=== PATIENT | female | born 1960 | race Caucasian/White ===

== ENCOUNTER 2023-08-12 08:03 | Inpatient (IN) | payer OTHER ==
[2023-08-12] MEDS ORDERED: Iopamidol 370 76% 100 ML VIAL ONE (09:54)
[2023-08-12 11:22] VITALS: BMI 34.5
[2023-08-12] MEDS ORDERED: Glucagon 1 MG/ML KIT IM PRN (11:52)
[2023-08-12] MEDS ORDERED: Dextrose 5% in Water 1,000 ML IV PRN (11:52)
[2023-08-12] MEDS ORDERED: Acetaminophen 650 MG Suppository PR PRN (11:52)
[2023-08-12] MEDS ORDERED: Dextrose 50% Abboject 50 ML SYRINGE SLOW IVP PRN (11:52)
[2023-08-12] MEDS ORDERED: Electrolyte Replacement Protocol 1 EACH FS SCH (12:00)
[2023-08-12] MEDS: Sodium Chloride 0.9% 1,000 ML IV SCH ×2 (14:00→15:44)
[2023-08-12] MEDS: methylPREDNISolone Sod Succ 40 MG VIAL IVP SCH ×2 (14:01→20:38)
[2023-08-12] MEDS: Acetaminophen/Codeine 30-300mg Tablet PO PRN (14:02)
[2023-08-12] MEDS: HumaLOG 300 UNITS/3 ML VIAL SC PRN ×2 (14:31→20:37)
[2023-08-12] MEDS: Phenol 177 ML BOT PO PRN (14:32)
[2023-08-12 14:33] LABS: Magnesium 1.3 mg/dL (1.6-2.6)
[2023-08-12 14:39] LABS: Troponin I Less than 0.010 ng/mL (< 0.028)
[2023-08-12] MEDS: Ipratropium/Albuterol 3 ML NEB NEB SCH (15:17)
[2023-08-12] MEDS: Sodium Chloride 0.9% 500 ML IV SCH (15:40)
[2023-08-12] MEDS: Magnesium 2 GM/50 ML(in water) 2 GM in Premix 1 BAG IVPB SCH ×2 (15:45→22:59)
[2023-08-12 17:28] LABS: Lactic Acid 7.6 mmol/L (0.5-2.2)
[2023-08-12] MEDS: Mometasone/Formoterol 200/5 60 PUFF INH SCH (19:30)
[2023-08-12] MEDS: DULoxetine 30 MG CAP PO SCH (20:11)
[2023-08-12] MEDS: Gabapentin 300 MG CAP PO SCH (20:12)
[2023-08-12] MEDS: guaiFENesin ER 600 MG TAB PO SCH (20:13)
[2023-08-12] MEDS: Famotidine/PF 20 mg/2ml Vial SLOW IVP SCH (20:13)
[2023-08-12] MEDS: Lidocaine Viscous Sol 2% 15 ml UD Cup SSW PRN (20:14)
[2023-08-12] MEDS: Atorvastatin Calcium 20 MG TAB PO SCH (20:40)
[2023-08-12 21:29] LABS: Critical Call Chem-Lactate NUR.FVB AT 21:25 Read back result
[2023-08-12] MEDS: Ketorolac Tromethamine 30 MG (1 mL) VIAL IVP SCH (22:43)
[2023-08-12] MEDS: Melatonin 3 MG TAB PO SCH (22:57)
[2023-08-12] MEDS: Lactated Ringer's 1,000 ML IV SCH (23:04)
[2023-08-13 02:09] LABS: Lactic Acid 5.5 mmol/L (0.5-2.2)
[2023-08-13 02:10] LABS: Critical Call Chem-Lactate NUR.FVB 0142
[2023-08-13 04:27] LABS: ALT (SGPT) 13 U/L (8-55); AST (SGOT) 12 U/L (5-34); Albumin 2.8 g/dL (3.4-4.8); Alkaline Phosphatase 79 U/L (40-110); Anion Gap 16 mmol/L (10-20); BUN (Urea Nitrogen) 12 mg/dL (9.8-20.1); Bilirubin, Total 0.4 mg/dL (0.2-1.2); Calc. Creatinine Clearance 85 mL/min (70-130); Calcium 8.7 mg/dL (7.8-10.44); Carbon Dioxide 15 mmol/L (23-31); Chloride 109 mmol/L (98-107); Estimated GFR 67; Globulin 3.1 g/dL (2.4-3.5); Potassium 4.3 mmol/L (3.5-5.1); Protein, Total 5.9 g/dL (5.8-8.1); Sodium 136 mmol/L (136-145)
[2023-08-13 04:31] LABS: Hematocrit 32.8 % (34.9-44.5); Hemoglobin 10.8 g/dL (12.0-15.5); Mean Corpuscular HGB CONC 32.9 g/dL (32.0-36.0); Mean Corpuscular Hemoglobin 27.1 pg (27.0-33.0); Mean Corpuscular Volume 82.4 fl (81.6-98.3); Mean Platelet Volume 10.8 fl (7.4-10.4); Platelet Count 148 10x3/uL (150-450); RBC Distribution Width 14.3 % (11.5-14.5); Red Blood Cell (RBC) Count 3.98 10x6/uL (3.90-5.03); White Blood Cell (WBC) Count 14.9 10x3/uL (3.5-10.5)
[2023-08-13 04:32] LABS: MDiff Complete? YES
[2023-08-13 04:33] LABS: Critical Call Chemistry @CB19 0430; Glucose 401 mg/dL (80-115); Magnesium 3.4 mg/dL (1.6-2.6)
[2023-08-13 04:55] LABS: Band 38 % (5-11); Lymphocytes 2 % (21-51); Monocytes 6 % (0-10); Neutrophil 54 % (42-75)
[2023-08-13 04:58] LABS: Platelet Adequacy Comment Appears Adequate; RBC Morph Comment Within Normal Limits
[2023-08-13 04:59] LABS: Dohle Bodies SLIGHT
[2023-08-13] MEDS: Ipratropium/Albuterol 3 ML NEB NEB PRN (07:30)
[2023-08-13] MEDS: Atenolol 50 MG TAB PO SCH (09:22)
[2023-08-13] MEDS: Enoxaparin 40 MG (0.4 mL) SYRINGE SC SCH (09:23)
[2023-08-13] MEDS: Lantus 1000 UNITS/10 ML VIAL SC SCH (09:25)
[2023-08-13] MEDS: Lidocaine 4% Patch TD SCH (10:25)
[2023-08-13 12:16] LABS: Lactic Acid 3.6 mmol/L (0.5-2.2)
[2023-08-13] MEDS: cefTRIAXone\\ROCEPHIN 2 GM in Sodium Chloride 0.9% 100 ML IVPB SCH (12:51)
[2023-08-13] MEDS: Azithromycin 500 MG in Sodium Chloride 0.9% 250 ML 250 ML IVPB SCH (12:51)
[2023-08-13] MEDS: Lactated Ringer's 1,000 ML IV SCH (12:52)
[2023-08-13 18:34] LABS: Lactic Acid 2.2 mmol/L (0.5-2.2)
[2023-08-13] MEDS: Benzocaine/Menthol 1 LOZ LOZ PO PRN (21:58)
[2023-08-14] MEDS: Melatonin 3 MG TAB PO SCH (01:15)
[2023-08-14 05:45] LABS: Hematocrit 34.6 % (34.9-44.5); Mean Corpuscular HGB CONC 31.8 g/dL (32.0-36.0); Mean Corpuscular Hemoglobin 26.5 pg (27.0-33.0); Mean Corpuscular Volume 83.4 fl (81.6-98.3); Mean Platelet Volume 10.6 fl (7.4-10.4); Platelet Count 183 10x3/uL (150-450); RBC Distribution Width 14.5 % (11.5-14.5); Red Blood Cell (RBC) Count 4.15 10x6/uL (3.90-5.03); White Blood Cell (WBC) Count 22.3 10x3/uL (3.5-10.5)
[2023-08-14 05:47] LABS: Anion Gap 15 mmol/L (10-20); BUN (Urea Nitrogen) 20 mg/dL (9.8-20.1); Calc. Creatinine Clearance 81 mL/min (70-130); Calcium 9.1 mg/dL (7.8-10.44); Carbon Dioxide 19 mmol/L (23-31); Chloride 108 mmol/L (98-107); Estimated GFR 64; Glucose 203 mg/dL (80-115); MDiff Complete? YES; Potassium 5.2 mmol/L (3.5-5.1); Sodium 137 mmol/L (136-145)
[2023-08-14 06:16] LABS: Band 19 % (5-11); Lymphocytes 4 % (21-51); Monocytes 2 % (0-10); Neutrophil 75 % (42-75)
[2023-08-14 06:19] LABS: Microcytosis SLIGHT = 6-15 cells (100X) (0-5/hpf); Platelet Adequacy Comment Appears Adequate
[2023-08-14] MEDS: Ipratropium/Albuterol 3 ML NEB NEB SCH (06:45)
[2023-08-14] MEDS ORDERED: Furosemide 20 MG (2 mL) VIAL SLOW IVP SCH (07:45)
[2023-08-14] MEDS: Albumin 25% 25 GM (100 mL) BOT IVPB SCH (09:23)
[2023-08-14] MEDS: Furosemide 20 MG (2 mL) VIAL SLOW IVP SCH (09:28)
[2023-08-14] MEDS: Acetylcysteine 800 MG/4 ML VIAL INH SCH ×2 (09:50→15:05)
[2023-08-14] MEDS: Piperacillin/Tazobactam 3.375 GM in Sodium Chloride 0.9% 100 ML IVPB SCH ×3 (11:46→14:08)
[2023-08-14] MEDS: Aluminum & Magnesium Hydroxide 60 ML, Lidocaine 2% Viscous Solution 30 ML, diphenhydrAM... SSW PRN (14:08)
[2023-08-14 14:50] LABS: Anion Gap 16 mmol/L (10-20); BUN (Urea Nitrogen) 21 mg/dL (9.8-20.1); Calc. Creatinine Clearance 72 mL/min (70-130); Carbon Dioxide 19 mmol/L (23-31); Chloride 104 mmol/L (98-107); Estimated GFR 56; Glucose 384 mg/dL (80-115); Potassium 4.6 mmol/L (3.5-5.1); Sodium 134 mmol/L (136-145)
[2023-08-14] MEDS: clonazePAM 1 MG TAB PO PRN (21:31)
[2023-08-14] MEDS: Albuterol 2.5 MG (3 mL) NEB NEB PRN (23:55)
[2023-08-15 05:21] LABS: Hematocrit 33.2 % (34.9-44.5); Hemoglobin 10.7 g/dL (12.0-15.5); Mean Corpuscular HGB CONC 32.2 g/dL (32.0-36.0); Mean Corpuscular Hemoglobin 27.1 pg (27.0-33.0); Mean Corpuscular Volume 84.1 fl (81.6-98.3); Mean Platelet Volume 10.4 fl (7.4-10.4); Platelet Count 184 10x3/uL (150-450); RBC Distribution Width 14.3 % (11.5-14.5); Red Blood Cell (RBC) Count 3.95 10x6/uL (3.90-5.03); White Blood Cell (WBC) Count 19.8 10x3/uL (3.5-10.5)
[2023-08-15 05:23] LABS: Anion Gap 14 mmol/L (10-20); BUN (Urea Nitrogen) 18 mg/dL (9.8-20.1); Calc. Creatinine Clearance 91 mL/min (70-130); Calcium 9.4 mg/dL (7.8-10.44); Carbon Dioxide 23 mmol/L (23-31); Chloride 108 mmol/L (98-107); Estimated GFR 74; Glucose 172 mg/dL (80-115); Potassium 4.3 mmol/L (3.5-5.1); Sodium 141 mmol/L (136-145)
[2023-08-15 05:36] LABS: MDiff Complete? YES
[2023-08-15 05:42] LABS: Band 19 % (5-11); Lymphocytes 6 % (21-51); Metamyelocyte 1 % (0-0); Monocytes 6 % (0-10); Neutrophil 68 % (42-75)
[2023-08-15 05:44] LABS: Platelet Adequacy Comment Appears Adequate; RBC Morph Comment Within Normal Limits
[2023-08-15] MEDS: Acetaminophen 325 MG TAB PO PRN (09:05)
[2023-08-15] MEDS: Senokot S 8.6-50 MG TAB PO PRN (09:19)
[2023-08-15] MEDS: SEMAGLUTIDE SC SCH (17:31)
[2023-08-15] MEDS ORDERED: Ipratropium/Albuterol 3 ML NEB NEB PRN (18:43)
[2023-08-15] MEDS: Ipratropium/Albuterol 3 ML NEB NEB SCH (18:56)
[2023-08-15 19:25] LABS: ALV-art Gradient 187.275 mmHg (0-20); Actual Bicarbonate (HCO3a) 22.7 mEq/L (22-28); Analyzer IN Cardio CS ICU; Base Excess (BEa) -0.5 mEq/L (-2.0 to +3.0); CO2 Tension 32.5 mmHg (35.0-45.0); Calcium, Ionized (arterial) 1.17 mmol/L (1.12-1.30); Carboxyhemoglobin (COHb) 0.2 gm% (0.0-3.0); Critical Notified By: CP.MC; Hematocrit-ABG 33 % (36.0-47.0); Hemoglobin (Hb) 11.3 g/dL (12.0-16.0); O2 Tension (PaO2), arterial 57.3 mmHg (> 80.0); Potassium - ABG Lab 3.92 mmol/L (3.70-5.30); Puncture Site LRA; RapidComm Collect By CP.MC; pH, Arterial 7.462 (7.35-7.45)
[2023-08-15] MEDS: methylPREDNISolone Sod Succ 40 MG VIAL IVP SCH (20:38)
[2023-08-15] MEDS: Furosemide 40 MG (4 mL) VIAL SLOW IVP SCH (20:38)
[2023-08-15] MEDS: Ondansetron PF 4 MG/2 ML Vial IVP PRN (21:48)
[2023-08-16 04:30] LABS: #Basophils 0.04 10x3/uL (0.0-0.2); #Eosinphils 0.03 10x3/uL (0.0-0.5); #Neutrophils 12.77 10x3/uL (1.5-8.4); %Basophils 0.3 % (0.0-2.0); %Eosinophils 0.2 % (0.0-6.0); %Lymphocytes 3.8 % (18.0-47.0); %Monocytes 2.8 % (0.0-10.0); %Neutrophils 90.5 % (40.0-75.0); Hematocrit 34.1 % (34.9-44.5); Hemoglobin 11.1 g/dL (12.0-15.5); Mean Corpuscular HGB CONC 32.6 g/dL (32.0-36.0); Mean Corpuscular Hemoglobin 26.4 pg (27.0-33.0); Platelet Count 120 10x3/uL (150-450); RBC Distribution Width 14.5 % (11.5-14.5); Red Blood Cell (RBC) Count 4.21 10x6/uL (3.90-5.03); White Blood Cell (WBC) Count 14.1 10x3/uL (3.5-10.5)
[2023-08-16 04:34] LABS: Mean Platelet Volume 11.4 fl (7.4-10.4)
[2023-08-16] MEDS: Mometasone/Formoterol 200/5 60 PUFF INH SCH (07:08)
[2023-08-16] MEDS: predniSONE 20 MG TAB PO SCH (08:44)
[2023-08-16] MEDS: Furosemide 20 MG (2 mL) VIAL SLOW IVP SCH ×2 (08:45→11:21)
[2023-08-16 14:17] LABS: Actual Bicarbonate (HCO3a) 31.3 mEq/L (22-28); Analyzer IN Cardio CS ER; Base Excess (BEa) 6.8 mEq/L (-2.0 to +3.0); Calcium, Ionized (arterial) 1.11 mmol/L (1.12-1.30); Carboxyhemoglobin (COHb) 0.4 gm% (0.0-3.0); Hematocrit-ABG 36 % (36.0-47.0); Hemoglobin (Hb) 12.3 g/dL (12.0-16.0); O2 Tension (PaO2), arterial 77.1 mmHg (> 80.0); Potassium - ABG Lab 3.47 mmol/L (3.70-5.30); Puncture Site RRA
[2023-08-16 19:16] LABS: CRP,High Sensitivity (Inhouse) 29.05 mg/dL (< or = 0.5)
[2023-08-17] MEDS: Furosemide 40 MG (4 mL) VIAL SLOW IVP SCH (06:05)
[2023-08-17] MEDS: Polyethylene Glycol 3350 17 GM Packet PO PRN (08:52)
[2023-08-17] MEDS ORDERED: Furosemide 40 MG (4 mL) VIAL SLOW IVP SCH (09:00)
[2023-08-17 09:02] LABS: #Basophils 0.05 10x3/uL (0.0-0.2); #Eosinphils 0.09 10x3/uL (0.0-0.5); #Monocytes 0.66 10x3/uL (0.0-1.1); #Neutrophils 11.82 10x3/uL (1.5-8.4); %Basophils 0.4 % (0.0-2.0); %Eosinophils 0.6 % (0.0-6.0); %Lymphocytes 7.8 % (18.0-47.0); %Monocytes 4.6 % (0.0-10.0); Hematocrit 36.7 % (34.9-44.5); Hemoglobin 12.2 g/dL (12.0-15.5); Mean Corpuscular HGB CONC 33.2 g/dL (32.0-36.0); Mean Corpuscular Hemoglobin 26.9 pg (27.0-33.0); Mean Corpuscular Volume 80.8 fl (81.6-98.3); Mean Platelet Volume 9.9 fl (7.4-10.4); Platelet Count 236 10x3/uL (150-450); Red Blood Cell (RBC) Count 4.54 10x6/uL (3.90-5.03); White Blood Cell (WBC) Count 14.2 10x3/uL (3.5-10.5)
[2023-08-17 11:12] LABS: Anion Gap 13 mmol/L (10-20); BUN (Urea Nitrogen) 19 mg/dL (9.8-20.1); Calc. Creatinine Clearance 97 mL/min (70-130); Carbon Dioxide 33 mmol/L (23-31); Chloride 96 mmol/L (98-107); Potassium 3.4 mmol/L (3.5-5.1); Sodium 139 mmol/L (136-145)
[2023-08-17 11:13] LABS: Calcium 9.2 mg/dL (7.6-10.4); Estimated GFR 79; Glucose 200 mg/dL (80-115)
[2023-08-17] MEDS: Potassium Chloride 20 MEQ TAB PO SCH (13:14)
[2023-08-17 14:15] VITALS: BMI 34.5
[2023-08-17] MEDS: Polyethylene Glycol 3350 17 GM Packet PO SCH (15:16)
[2023-08-17] MEDS: Lactulose 20 GM (30 mL) UDCUP PO SCH (15:16)
[2023-08-17] MEDS: Pantoprazole 40 MG VIAL IVP SCH ×2 (15:17→22:54)
[2023-08-17] MEDS: Ipratropium/Albuterol 3 ML NEB NEB SCH (17:33)
[2023-08-17] MEDS: Lantus 1000 UNITS/10 ML VIAL SC SCH (21:00)
[2023-08-17] MEDS: Ondansetron ODT 4 MG TAB PO PRN (22:54)
[2023-08-18 05:58] LABS: Magnesium 2.1 mg/dL (1.6-2.6); Phosphorus 3.3 mg/dL (2.3-4.7); Potassium 3.7 mmol/L (3.5-5.1)
[2023-08-18] MEDS: Polyethylene Glycol 3350 17 GM Packet PO SCH (09:27)
[2023-08-18] MEDS: Amoxicillin/Potassium Clav 875 MG TAB PO SCH (09:27)
[2023-08-19] MEDS: Calcium Carbonate 500 MG ChewTAB PO PRN (02:48)
[2023-08-19 05:14] LABS: #Basophils 0.02 10x3/uL (0.0-0.2); #Eosinphils 0.15 10x3/uL (0.0-0.5); #Monocytes 0.47 10x3/uL (0.0-1.1); %Basophils 0.3 % (0.0-2.0); %Lymphocytes 18.1 % (18.0-47.0); %Monocytes 6.2 % (0.0-10.0); %Neutrophils 69.8 % (40.0-75.0); Hematocrit 33.1 % (34.9-44.5); Hemoglobin 10.9 g/dL (12.0-15.5); Mean Corpuscular HGB CONC 32.9 g/dL (32.0-36.0); Mean Corpuscular Hemoglobin 26.8 pg (27.0-33.0); Mean Corpuscular Volume 81.5 fl (81.6-98.3); Mean Platelet Volume 10.1 fl (7.4-10.4); Platelet Count 211 10x3/uL (150-450); RBC Distribution Width 13.5 % (11.5-14.5); Red Blood Cell (RBC) Count 4.06 10x6/uL (3.90-5.03); White Blood Cell (WBC) Count 7.6 10x3/uL (3.5-10.5)
[2023-08-19 05:23] LABS: Anion Gap 14 mmol/L (10-20); BUN (Urea Nitrogen) 12 mg/dL (9.8-20.1); Calc. Creatinine Clearance 109 mL/min (70-130); Calcium 8.7 mg/dL (7.8-10.44); Carbon Dioxide 30 mmol/L (23-31); Chloride 99 mmol/L (98-107); Estimated GFR 91; Glucose 160 mg/dL (80-115); Potassium 3.5 mmol/L (3.5-5.1); Sodium 139 mmol/L (136-145)
[2023-08-19] MEDS: Potassium Chloride 20 MEQ TAB PO SCH (09:18)
[2023-08-19] MEDS ORDERED: Benzonatate 100 MG CAP PO PRN (11:29)
[2023-08-19] MEDS ORDERED: Ipratropium/Albuterol 3 ML NEB NEB PRN (11:32)
[2023-08-19] MEDS ORDERED: MAGIC MOUTH WASH W/NYSTATIN SUSP 10 ML UDCUP SSP SCH (13:00)
[2023-08-19] MEDS: Aluminum & Magnesium Hydroxide 60 ML, diphenhydrAMINE 150 MG, Lidocaine 2% Viscous Solu... SSP SCH (13:45)
[2023-08-19] MEDS: Lactulose 20 GM (30 mL) UDCUP PO SCH (13:45)
[2023-08-19] MEDS: Fluconazole 100 MG TAB PO SCH (15:05)
[2023-08-20 04:16] LABS: #Basophils 0.01 10x3/uL (0.0-0.2); #Monocytes 0.43 10x3/uL (0.0-1.1); #Neutrophils 4.83 10x3/uL (1.5-8.4); %Basophils 0.1 % (0.0-2.0); %Eosinophils 1.5 % (0.0-6.0); %Lymphocytes 18.2 % (18.0-47.0); %Monocytes 6.3 % (0.0-10.0); %Neutrophils 71.1 % (40.0-75.0); Hematocrit 33.6 % (34.9-44.5); Mean Corpuscular HGB CONC 32.7 g/dL (32.0-36.0); Mean Corpuscular Hemoglobin 26.9 pg (27.0-33.0); Mean Corpuscular Volume 82.2 fl (81.6-98.3); Mean Platelet Volume 10.3 fl (7.4-10.4); Platelet Count 222 10x3/uL (150-450); RBC Distribution Width 13.4 % (11.5-14.5); Red Blood Cell (RBC) Count 4.09 10x6/uL (3.90-5.03); White Blood Cell (WBC) Count 6.8 10x3/uL (3.5-10.5)
[2023-08-20 04:26] LABS: Anion Gap 14 mmol/L (10-20); BUN (Urea Nitrogen) 12 mg/dL (9.8-20.1); Calc. Creatinine Clearance 107 mL/min (70-130); Calcium 8.7 mg/dL (7.8-10.44); Carbon Dioxide 27 mmol/L (23-31); Chloride 100 mmol/L (98-107); Estimated GFR 89; Glucose 176 mg/dL (80-115); Potassium 3.9 mmol/L (3.5-5.1); Sodium 137 mmol/L (136-145)
[2023-08-20] MEDS ORDERED: Lansoprazole 3 MG/ML ORAL SUSPENSION PO SCH (09:00)
[2023-08-20] MEDS: Atenolol 25 MG TAB PO SCH (09:44)
[2023-08-20] MEDS: Furosemide 20 MG (2 mL) VIAL SLOW IVP SCH (11:41)
[2023-08-20] MEDS: Pantoprazole DR 40 MG TAB PO SCH (11:41)
[2023-08-20 13:38] VITALS: TEMP 98.1
[2023-08-20] MEDS: SODIUM CHLORIDE IVPB SCH (13:44)
[2023-08-20] MEDS: ADMIXTURE FEE IVPB SCH (13:44)
[2023-08-20] MEDS: FUROSEMIDE IVPB SCH (13:44)
[2023-08-20 14:03] VITALS: BP 128/68
[2023-08-21] MEDS ORDERED: Pantoprazole DR 40 MG TAB PO SCH (09:00)
== END 2023-08-20 15:58 | disposition home or self-care (01) | DRG 871 ==
LOC: CSHTELE 08:52
PROVIDERS: ADMIT Internal Medicine; ATTEND Internal Medicine
DX: A40.0 Sepsis due to streptococcus, group A (principal); I50.33 Acute on chronic diastolic (congestive) heart failure; J18.9 Pneumonia, unspecified organism; J96.01 Acute respiratory failure with hypoxia; J44.1 Chronic obstructive pulmonary disease with (acute) exacerbation; J44.0 Chronic obstructive pulmonary disease with (acute) lower respiratory infection; E87.20 Acidosis, unspecified; R65.20 Severe sepsis without septic shock; J44.9 Chronic obstructive pulmonary disease, unspecified; E11.65 Type 2 diabetes mellitus with hyperglycemia; E78.5 Hyperlipidemia, unspecified; I11.0 Hypertensive heart disease with heart failure; E11.40 Type 2 diabetes mellitus with diabetic neuropathy, unspecified; G47.33 Obstructive sleep apnea (adult) (pediatric); Z79.899 Other long term (current) drug therapy; Z90.49 Acquired absence of other specified parts of digestive tract; Z90.710 Acquired absence of both cervix and uterus
CPT/HCPCS: 36415; 36416; 36600; 71045; 71275; 74230; 80048; 80053; 82010; 82805; 83605; 83735; 83880; 84100; 84132; 84145; 84484; 85025; 86141; 93005; 93010; 93306; 94640; 94664; 94667; 94668; 94760; C9113; J0456; J0696; J1650; J1815; J1885; J1940; J2405; J2543; J2920; J3475; J3490; J7030; J7050; J7120; J7512; J7611; J7620; P9047; Q0162; Q0163; Q9967; S0028